=== PATIENT | female | born 1950 | race Caucasian/White ===

== ENCOUNTER 2019-09-21 15:11 | Emergency (ER) | payer MEDICARE ==
[~2019-09-21] VITALS: Ht 177.8 cm; Wt 83.9 kg
[2019-09-21 15:30] VITALS: BP 129/84
[2019-09-21 15:50] VITALS: BP 128/84
--- NOTE | 2019-09-21 19:48 | Emergency Room Report ---
History of Present Illness General Chief Complaint: General Complaint Source: Patient Present Illness HPI 69-year-old female presents ED for evaluation. States that she is cold because she has been out in the rain without a place to stay for the last few days. Temp 97.5. Denies fevers or chills. Denies cough. Denies any body aches. Denies any weakness. States she is here because she needs referrals to a hotel. States she has money. Does not want to stay in a prison. Denies SI or HI. Denies hearing voices. No other aggravating relieving factors. Denies any other associated symptoms Allergies: Coded Allergies: No Known Allergies (Unverified , 09/21/19) Patient History Past Medical History: none Past Surgical History: none Pertinent Family History: none Social History: Denies: smoking, alcohol use, drug use Now: No Immunizations: UTD Reviewed Nursing Documentation: PMH: Agreed; PSxH: Agreed Nursing Documentation-PMH Hx COPD: Yes - bronchitis Review of Systems All Other Systems: negative except mentioned in HPI Physical Exam Vital Signs Date Time Temp Pulse Resp B/P (MAP) Pulse Ox O2 Delivery O2 Flow Rate FiO2 09/21/19 15:22 97.3 103 18 129/84 (99) 98 Room Air Sp02 EP Interpretation: reviewed, normal General Appearance: no apparent distress, alert, GCS 15, non-toxic Head: normocephalic, atraumatic Eyes: bilateral eye normal inspection, bilateral eye PERRL ENT: hearing grossly normal, normal pharynx, no angioedema, normal voice Neck: full range of motion, supple/symm/no masses Respiratory: chest non-tender, lungs clear, normal breath sounds, speaking full sentences Cardiovascular #1: regular rate, rhythm, no edema Cardiovascular #2: 2+ carotid (R), 2+ carotid (L), 2+ radial (R), 2+ radial (L) , 2+ dorsalis pedis (R), 2+ dorsalis pedis (L) Gastrointestinal: normal bowel sounds, non tender, soft, non-distended, no guarding, no rebound Rectal: deferred Genitourinary: normal inspection, no CVA tenderness Musculoskeletal: back normal, normal range of motion, gait/station normal, non- tender Neurologic: alert, motor strength/tone normal, oriented x3, sensory intact, responsive, speech normal Psychiatric: judgement/insight normal, memory normal, mood/affect normal, no suicidal/homicidal ideation Reflexes: 3+ bicep (R), 3+ bicep (L), 3+ tricep (R), 3+ tricep (L), 3+ knee (R) , 3+ knee (L) Lymphatic: no adenopathy Medical Decision Making Homeless Attestation I, The treating physician Dr. Wesley, have assessed and agrees that patient is medically stable for discharge to an outpatient disposition. Diagnostic Impression: Primary Impression: Homelessness ER Course 69-year-old female presents ED stating that she needs a place to stay. Requesting hotel referrals. Temp 97.5 outside in the cold for the last 3 days Differentialhypothermia, sepsis, dehydration Placed in chair. After initial history physical exam reveals female in no acute distress. Physical exam unremarkable. Temperature was slightly low but not category for hypothermia. The work-up done here. Refusing prison referrals. Is [place] a [place] of hotels [place]. Provided by the nurse. Patient is awake alert oriented. Has capacity. We will discharge with the list of hotels. We will also provide PMD referrals. Safe for discharge diagnosis - homelessness stable and discharged to hotel. f/u with PMD. return to ED if symptoms recur/ worsen. Last Vital Signs Date Time Temp Pulse Resp B/P (MAP) Pulse Ox O2 Delivery O2 Flow Rate FiO2 09/21/19 15:50 97.5 100 18 128/84 98 Room Air Status: improved Disposition: HOME, SELF-CARE Condition: Stable Scripts No Active Prescriptions or Reported Meds Referrals: NOT CHOSEN AGUILAR/,REFERRING (PCP) Marcela Yarbrough [facility] Patient Instructions: Hypothermia Prevention Additional Instructions: stay out of the cold. take prison referrals provided by your nurse. Bhanu Wesley MD Sep 21, 2019 19:48
== END 2019-09-21 16:00 | disposition home or self-care (01) ==
LOC: EMR 16:00
DX: T69.9XXA Effect of reduced temperature, unspecified, initial encounter (principal); Z59.0 Homelessness; J44.9 Chronic obstructive pulmonary disease, unspecified; X58.XXXA Exposure to other specified factors, initial encounter; Y92.9 Unspecified place or not applicable
CPT/HCPCS: 99281

== ENCOUNTER 2019-12-05 06:09 | Emergency (ER) | payer MEDICARE ==
[~2019-12-05] VITALS: Ht 177.8 cm; Wt 74.8 kg
--- NOTE | 2019-12-05 06:20 | NUR ---
ED Nurse Note: PT WALKED IN TO ED C/O BRONCHITIS AND OTHER MEDICAL CONDITION. PATIENT REPORTS COUGH X2DAYS. DOES NOT PRESENT WITH FEVER OR CHILS. WILL CONTINUE TO MONITOR PATIOENT.
[2019-12-05 06:28] VITALS: BP 125/84
--- NOTE | 2019-12-05 06:33 | Emergency Room Report ---
History of Present Illness General Chief Complaint: cough Source: Patient Present Illness HPI Patient is a 69-year-old female presents after increased cough for 2 days. She reports having prior history of bronchitis. She states she does not take any medications. She denies being a smoker. She reports having intermittent cough. Reports having some increased body pain. Denies any fever. Had not been vomiting. Denies any prior cardiac history. Denies take any medications. Denies any drug use. Allergies: Coded Allergies: No Known Allergies (Unverified , 09/21/19) Patient History Past Medical History: see triage record Last Menstrual Period: na Now: No : 0 Para: 0 Reviewed Nursing Documentation: PMH: Agreed; PSxH: Agreed Nursing Documentation-PMH Past Medical History: No History, Except For Hx COPD: Yes - bronchitis Review of Systems All Other Systems: negative except mentioned in HPI Physical Exam Vital Signs Date Time Temp Pulse Resp B/P (MAP) Pulse Ox O2 Delivery O2 Flow Rate FiO2 12/05/19 06:12 97.5 76 19 125/84 (98) 97 Room Air Sp02 EP Interpretation: reviewed, normal General Appearance: normal inspection, well appearing, no apparent distress, alert, GCS 15, obese, Chronically Ill Head: atraumatic ENT: normal ENT inspection, hearing grossly normal, normal voice Neck: normal inspection, full range of motion, supple, no bony tend Respiratory: normal inspection, lungs clear, normal breath sounds, no respiratory distress, no retraction, no wheezing Cardiovascular #1: regular rate, rhythm, no edema Gastrointestinal: normal inspection, normal bowel sounds, non tender, soft, no guarding, no hernia Genitourinary: no CVA tenderness Musculoskeletal: normal inspection, back normal, normal range of motion Neurologic: alert, motor strength/tone normal, interline clerk III-XII nml as tested, oriented x3, responsive, speech normal, normal inspection Psychiatric: normal inspection, judgement/insight normal, mood/affect normal Medical Decision Making Diagnostic Impression: Primary Impression: Viral upper respiratory infection ER Course Patient presented for cough. Differential diagnosis include was not limited to pneumonia, bronchitis, upper respiratory infection among others. Patient has a benign exam and does not appear to require any imaging or laboratory testing at this time. Chest x-ray 1 view interpreted by me showed normal cardiac size without evident infiltrate. Patient appears to be stable for outpatient management. She did not appear to be in any distress. Oxygen saturation on his 99% on room air. Patient was offered breathing treatment which he declined. Will be given medications for symptomatic treatment of cough. The patient is advised to follow up with primary care doctor in 1-2 days. Patient is advised to return if any worsening condition or if any changes in status that are concerning. This report is dictated with [employer] fire extinguisher mechanic software which may occasionally lead to discrepancies related to use of this software. Last Vital Signs Date Time Temp Pulse Resp B/P (MAP) Pulse Ox O2 Delivery O2 Flow Rate FiO2 12/05/19 06:28 76 19 Room Air 12/05/19 06:28 97.8 125/84 97 Status: improved Disposition: HOME, SELF-CARE Condition: Stable Scripts Guaifenesin/Dextromethorphan* (Guaifenesin Dm Syrup*) 5 Ml Syrup 5 ML ORAL Q8H PRN for FOR COUGH, #118 ML 0 Refills Prov: Rogelio Bar MD 12/05/19 Rogelio Bar MD Dec 05, 2019 06:33
[2019-12-05] MEDS ORDERED: Albuterol/Ipratropium 3ml neb HHN ONE (06:45)
--- NOTE | 2019-12-05 06:52 | NUR ---
attempted to give breathing Tx Duoneb to pt. Pt refused Tx, stated that the Tx made her vomitting, she didn't need breathing Tx. Dr. Bar and RN aware. Pt is awake, alert and no SOB or resp distress noted.
--- NOTE | 2019-12-05 07:17 | NUR ---
ED Nurse Note: GAVE REPORT TO MATT PECK
[2019-12-05] MEDS ORDERED: GUAIFENESIN DM118 M1 ORAL (07:32)
[2019-12-05 08:16] VITALS: BP 142/85
--- NOTE | 2019-12-05 08:16 | NUR ---
ER DISCHARGE NOTE: Patient is cleared to be discharged per ERMD, pt is aox4, on room air, with stable vital signs. pt was given dc and prescription instructions, pt was able to verbalize understanding, Pt states that she has her preferred pharmacy/[facility] and no need to fax prescrioption. pt id band and removed without complications. pt is able to ambulate with steady gait. pt took all belongings. Tap card provided.
--- NOTE | 2019-12-05 10:30 | Diagnostic Imaging Report ---
Indication: Shortness of breath Technique: One view of the chest Comparison: none Findings: Body habitus limits evaluation. The heart is enlarged. The left hemidiaphragm is somewhat obscured. The remainder of the lungs and pleural spaces are clear. Impression: Obscured left hemidiaphragm; probably due to soft tissue shadows but pleural and/or parenchymal disease of the left lung base possible No acute process otherwise Cardiomegaly
== END 2019-12-05 08:16 | disposition home or self-care (01) ==
LOC: EMR 07:05
DX: J06.9 Acute upper respiratory infection, unspecified (principal)
CPT/HCPCS: 71045; 99283; J7620

== ENCOUNTER 2019-12-08 08:49 | Emergency (ER) | payer MEDICARE ==
[~2019-12-08] VITALS: Ht 177.8 cm; Wt 74.8 kg
[~2019-12-08 08:49] MED LIST: GUAIFENESIN DM118 M1 ORAL
--- NOTE | 2019-12-08 09:12 | Emergency Room Report ---
History of Present Illness General Chief Complaint: Skin Rash/Abscess Source: Patient Present Illness HPI Rash underneath breasts states worsened. Itching. She is using hydrocortisone. She feels feverish but does not document fever. There is a foul smell. The area is moist and stings. She also has occasional rash in her groin. She rates the pain under her breasts 1/10, burning and stinging and nonradiating. Tetanus 5 years. No sore throat, palpitations, nausea, vomiting, diarrhea, dysuria, abdominal pain, shortness of breath, joint pain, rashes, depression, anxiety, visual changes, dizziness, headache. Patient is a smoker. She occasionally has a mucoid cough in the morning. She does have wheezing on occasion. Allergies: Coded Allergies: No Known Allergies (Unverified , 09/21/19) Patient History Past Medical History: see triage record Social History: Reports: smoking Social History Narrative [place] and [place]. Homeless -sleeps in a park. She states she is safe. Reviewed Nursing Documentation: PMH: Agreed; PSxH: Agreed Nursing Documentation-PMH Past Medical History: No History, Except For Hx COPD: Yes - bronchitis Review of Systems All Other Systems: negative except mentioned in HPI Physical Exam Vital Signs Date Time Temp Pulse Resp B/P (MAP) Pulse Ox O2 Delivery O2 Flow Rate FiO2 12/08/19 08:53 98.1 81 17 142/78 (99) 97 Room Air Sp02 EP Interpretation: reviewed, normal General Appearance: well appearing, no apparent distress, GCS 15 Head: normocephalic Eyes: bilateral eye normal inspection, bilateral eye PERRL, bilateral eye EOMI ENT: moist mucus membranes Respiratory: no respiratory distress, rhonchi - Occasional Cardiovascular #1: regular rate, rhythm Gastrointestinal: normal inspection, overweight Musculoskeletal: gait/station normal, normal range of motion, no calf tenderness Neurologic: alert, oriented x3, grossly normal Psychiatric: mood/affect normal Skin: warm/dry, other - Erythematous rash below both breasts and soft sternal area. Foul-smelling and moist Medical Decision Making Homeless Attestation I, The treating physician Dr. Feng, have assessed and agree that patient is medically stable for discharge to an outpatient disposition. Diagnostic Impression: Primary Impression: Intertrigo Additional Impression: Cellulitis Qualified Codes: L03.311 - Cellulitis of abdominal wall ER Course Patient presents with painful erythematous rash under breasts. Differential includes intertrigo, cellulitis amongst others. Shingles is excluded as it is bilateral. Patient is nontoxic at this time. Due to the extent of the rash and its severity oral antibiotics are indicated. In addition antifungals orally will be administered. Finally topical antifungals and antibiotics will be given after the rash is cleaned. Tetanus is up-to-date. Aside from a smoker 's cough no other somatic complaints exist at this time. Tylenol given. Discussed treatment plan with patient. No medical emergency at this time. Patient stable for outpatient observation and treatment. Last Vital Signs Date Time Temp Pulse Resp B/P (MAP) Pulse Ox O2 Delivery O2 Flow Rate FiO2 12/08/19 10:18 98.1 78 17 142/78 97 Room Air Status: improved Disposition: HOME, SELF-CARE - Homeless Condition: Improved Scripts Miconazole Nitrate (Lotrimin AF) 150 Gm [place] 150 GM TP BID, #150 SPRAY Prov: Romero Feng MD 12/08/19 Bacitracin (Bacitracin) 28.4 Gm Oint...g. 1 APPLIC TOPIC THREE TIMES A DAY, #30 GM Prov: Romero Feng MD 12/08/19 Acetaminophen (Tylenol) 325 Mg Tablet 650 MG ORAL Q6H PRN for Prn Pain/Headache/Temp > 101, #30 TAB 0 Refills Prov: Romero Feng MD 12/08/19 Fluconazole (FLUCONAZOLE) 100 Mg Tablet 100 MG ORAL DAILY, #7 TAB 0 Refills Prov: Romero Feng MD 12/08/19 Trimethoprim/Sulfamethoxazole 160/800* (BACTRIM DS TABLET*) 1 Each Tablet 1 TAB ORAL Q12H, #14 TAB 0 Refills Prov: Romero Feng MD 12/08/19 Romero Feng MD Dec 08, 2019 09:12
[2019-12-08] MEDS ORDERED: Bactrim-DS 1 tab ORAL ONE (09:15)
[2019-12-08] MEDS ORDERED: Fluconazole 100mg tab ORAL ONE (09:15)
[2019-12-08] MEDS ORDERED: Bacitracin Oint 15gm Tube TOPIC SCH (09:15)
[2019-12-08 09:25] VITALS: BP 142/78
--- NOTE | 2019-12-08 09:26 | NUR ---
ED Nurse Note:pt. came with nas rash under her breasts, seen by ER MD and was given PO meds and ointments
[2019-12-08] MEDS ORDERED: LOTRIMIN AF150 GM TP (10:11)
[2019-12-08] MEDS ORDERED: BACITRACIN15 GM TOPIC (10:11)
[2019-12-08] MEDS ORDERED: TYLENOL325 MG ORAL (10:11)
[2019-12-08] MEDS ORDERED: BACTRIM DS TAB1 EAC1 ORAL (10:11)
[2019-12-08] MEDS ORDERED: FLUCONAZOLE100 MG ORAL (10:11)
[2019-12-08 10:18] VITALS: BP 142/78
--- NOTE | 2019-12-08 10:20 | NUR ---
ER DISCHARGE NOTE: Patient is cleared to be discharged per ERMD, pt is aox4, on room air, with stable vital signs. pt was given dc and prescription instructions,homeless d/c form was signed, pt was able to verbalize understanding, pt is able to ambulate with steady gait. pt took all belongings.
== END 2019-12-08 10:21 | disposition home or self-care (01) ==
LOC: EMR 09:45
DX: L30.4 Erythema intertrigo (principal); L03.311 Cellulitis of abdominal wall; F17.200 Nicotine dependence, unspecified, uncomplicated; J44.9 Chronic obstructive pulmonary disease, unspecified
CPT/HCPCS: 99283